=== PATIENT | female | born 1960 | race Caucasian/White ===

== ENCOUNTER → 2019-08-18 14:08 | Outpatient (CLI) | payer OTHER, SELFPAY ==
--- NOTE | ~2019-08-18 | MMUS_ITS ---
EXAMINATION: MM diagnostic pretty RT w rodrigo, US breast RT limited HISTORY: Right breast mass on screening mammogram TECHNIQUE: Additional 3-D tomosynthesis images of the right breast were performed and synthetic 2-D i mages were generated. CAD analysis was submitted and interpreted. High resolution limited right breas t ultrasound was performed. COMPARISON: 06/01/2019, 05/17/2018, 05/06/2017 BREAST PARENCHYMAL COMPOSITION: There are scattered areas of fibroglandular density. FINDINGS: MAMMOGRAPHIC FINDINGS: There is a 5 mm oval, low density, obscured mass in the middle third of the breast at the 9:00 locati on 7 cm from the nipple. No suspicious calcification or architectural distortion are identified. ULTRASOUND: There is a 4 mm cyst at the 9:00 location 8 cm from the nipple corresponding to mammographic finding in question. IMPRESSION: 1. No mammographic or sonographic evidence of malignancy. 2. Recommend routine screening mammography in one year. BI-RADS Category 2: Benign finding(s). Reviewed, dictated and finalized at location A. STMENT OFFICER IMPRESSION: 1. No mammographic or sonographic evidence of malignancy. 2. Recommend routine screening mammography in one year. BI-RADS Category 2: Benign finding(s).
== END ==
PROVIDERS: PCP Internal Medicine; Visit Provider Internal Medicine
DX: N63.10 Unspecified lump in the right breast, unspecified quadrant (principal)
CPT/HCPCS: 76642; 77061; 77065; G0279

== ENCOUNTER 2020-07-19 13:44 | Outpatient (CLI) | payer OTHER, SELFPAY ==
--- NOTE | ~2020-07-19 | MM_ITS ---
EXAMINATION: MM screening pretty BI w rodrigo HISTORY: Screening mammogram TECHNIQUE: Craniocaudal and mediolateral oblique 3-D tomosynthesis images were obtained and synthetic 2-D images were generated. CAD analysis was submitted and interpreted. COMPARISON: diagnostic right digital mammogram and limited right breast ultrasound 06/01/2019, 05/25/2018, 05/06/2017 bilateral digital screening mammogram examinations BREAST PARENCHYMAL COMPOSITION: There are scattered areas of fibroglandular density. FINDINGS: Stable low-density circumscribed 5 mm opacity in the posterior outer mid right breast corre sponding to a 5 mm mammographic opacity documented to be a cyst at 9:00 8 cm from the nipple on 2019 limited right breast ultrasound examination. There is no evidence of suspicious mass, calcification, or architectural distortion to suggest malign sammi in either breast. There has been no suspicious interval change. IMPRESSION: 1. No mammographic evidence of malignancy. 2. Recommend routine screening mammography in one year. BI-RADS Category 2: Benign finding(s). Reviewed, dictated and finalized at location A. UCT COORDINATOR
== END 2020-07-19 13:45 | disposition home or self-care (01) ==
PROVIDERS: PCP Internal Medicine; Visit Provider Internal Medicine
DX: Z12.31 Encounter for screening mammogram for malignant neoplasm of breast (principal)
CPT/HCPCS: 77063; 77067

== ENCOUNTER 2021-07-21 15:30 | Outpatient (CLI) | payer BC, SELFPAY ==
--- NOTE | ~2021-07-21 | MM_ITS ---
EXAMINATION: MM screening [facility] BI w rodrigo HISTORY: Screening mammogram TECHNIQUE: Craniocaudal and mediolateral oblique 3-D tomosynthesis images were obtained and synthetic 2-D images were generated. CAD analysis was submitted and interpreted. COMPARISON: 07/19/2020, 08/18/2019, 06/01/2019 BREAST PARENCHYMAL COMPOSITION: There are scattered areas of fibroglandular density. FINDINGS: There is no evidence of suspicious mass, calcification, or architectural distortion to sugg est malignancy in either breast. There has been no suspicious interval change. IMPRESSION: 1. No mammographic evidence of malignancy. 2. Recommend routine screening mammography in one year. BI-RADS Category 1: Negative Reviewed, dictated and finalized at location A. VIDEOTAPE EDITOR
== END 2021-07-21 15:31 | disposition home or self-care (01) ==
LOC: ANHIMG 15:32
PROVIDERS: PCP Internal Medicine; Visit Provider Internal Medicine
DX: Z12.31 Encounter for screening mammogram for malignant neoplasm of breast (principal)
CPT/HCPCS: 77063; 77067

== ENCOUNTER 2022-03-15 19:00 | Emergency (ER) | payer OTHER, BC, SELFPAY ==
[2022-03-15 19:02] VITALS: BP 117/75; PULSE 81; RESP 16; TEMP 36.9; O2SAT 99
--- NOTE | 2022-03-15 19:32 | ED_ITS ---
HPI - Back Pain/Injury General Chief Complaint: Back Pain/Injury Stated Complaint: back pain, left leg pain Time Seen by Provider: 03/15/22 19:19 History of Present Illness HPI Narrative: My days off 61-year-old female presents to the emergency room sudden onset of low back pain. 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 Patient states that she bent over to waste picker a bag of trash when she felt a pulling sensation in her left lower back. Patient denies saddle anesthesia, lower extremity paresthesias, loss of bowel or bladder habits. Patient's pain is worse when she attempts to bend over or sit down or lay down. Related Data Allergies Allergy/AdvReac Type Severity Reaction Status Date / Time Penicillins Allergy Unknown UNKNOWN Verified 03/15/22 19:05 REACTION CHILD Review of Systems Review of Systems: CONSTITUTIONAL: Denies fever, chills, or sweats. EYES: Denies visual changes, redness, or discharge. ENT: Denies rhinorrhea, congestion, sore throat, or otalgia. CARDIOVASCULAR: Denies chest pain, palpitations, or edema. RESPIRATORY: Denies cough or dyspnea. GASTROINTESTINAL: Denies abdominal pain, nausea, vomiting, or diarrhea. GENITOURINARY: Denies dysuria or hematuria. SKIN: Denies rash or itching. MUSCULOSKELETAL: Reports left lower back pain NEUROLOGIC: Denies headache, numbness, dizziness, or weakness. PSYCHIATRIC: Denies anxiety or depression. Exam Narrative: GENERAL: Well-appearing, well-nourished, no physical limitations, and in no acute distress. HEAD: Normocephalic, atraumatic. EYES: Conjunctivae normal, PERRLA and EOMI. CHEST: Clear to auscultation. No respiratory distress. No wheezes rales or rhonchi. No tenderness. HEART: Regular rate and rhythm. No murmur heard. Normal peripheral pulses. BACK: No midline cervical/thoracic/lumbar tenderness, step-offs, bony abnormality. Tenderness over the left thoracolumbar fascia. Range of motion limited with rotation and lateral bend.+SLE LLE EXTREMITIES: Normal range of motion. No edema. No clubbing or cyanosis SKIN: Warm, dry, no rash. No noted wounds NEURO: No focal deficits. Alert and oriented x3. MAEW. CN's II-XI intact bilaterally, normal gait. +patellar reflex PSYCH: Cooperative. Normal mood and affect. Course Vital Signs Vital signs: Vital Signs Temperature 36.9 C 03/15/22 19:02 Pulse Rate 81 03/15/22 19:02 Respiratory Rate 16 03/15/22 19:02 Blood Pressure 117/75 03/15/22 19:02 Pulse Oximetry 99 03/15/22 19:02 Temperature 36.9 C 03/15/22 19:02 Pulse Rate 81 03/15/22 19:02 Respiratory Rate 16 03/15/22 19:02 Blood Pressure 117/75 03/15/22 19:02 Pulse Oximetry 99 03/15/22 19:02 Discharge Plan Discharge Clinical Impression: Strain of lumbar region Patient Disposition: Home, Self-Care Condition: Stable Instructions: Antibiotic Form, Acute Low Back Pain (ED) Prescriptions: New methocarbamol 500 mg tablet 500 mg PO TID 5 Days Qty: 15 0RF naproxen 500 mg tablet 500 mg PO BID Qty: 14 0RF Follow-up/Referrals: Moisés,Renata Scott MD [Primary Care Provider] - Stand Alone Forms: Work/School Release IP Time of Disposition: 19:36
== END 2022-03-15 19:54 | disposition home or self-care (01) ==
PROVIDERS: Emergency Provider Nurse Practitioner Family; PCP Internal Medicine
DX: S39.012A Strain of muscle, fascia and tendon of lower back, initial encounter (principal); X50.0XXA Overexertion from strenuous movement or load, initial encounter
CPT/HCPCS: 99283

== ENCOUNTER 2022-09-11 09:54 | Outpatient (CLI) | payer BC, SELFPAY ==
--- NOTE | ~2022-09-11 | MM_ITS ---
EXAMINATION: MM screening pretty BI w rodrigo HISTORY: Screening mammogram TECHNIQUE: Craniocaudal and mediolateral oblique 3-D tomosynthesis images were obtained and synthetic 2-D images were generated. CAD analysis was submitted and interpreted. COMPARISON: 07/17/2021, 07/19/2020 bilateral screening mammogram examinations BREAST PARENCHYMAL COMPOSITION: There are scattered areas of fibroglandular density. FINDINGS: There is no evidence of suspicious mass, calcification, or architectural distortion to sugg est malignancy in either breast. There has been no suspicious interval change. IMPRESSION: 1. No mammographic evidence of malignancy. 2. Recommend routine screening mammography in one year. BI-RADS Category 1: Negative Reviewed, dictated and finalized at location A.
== END 2022-09-11 09:55 | disposition home or self-care (01) ==
LOC: ANHIMG 09:57
PROVIDERS: PCP Internal Medicine; Visit Provider Internal Medicine
DX: Z12.31 Encounter for screening mammogram for malignant neoplasm of breast (principal)
CPT/HCPCS: 77063; 77067

== ENCOUNTER 2023-09-24 09:26 | Outpatient (CLI) | payer BC, SELFPAY ==
--- NOTE | ~2023-09-24 | MM_ITS ---
EXAMINATION: MM screening pretty BI w rodrigo HISTORY: Screening mammogram TECHNIQUE: Craniocaudal and mediolateral oblique 3-D tomosynthesis images were obtained and synthetic 2-D images were generated. CAD analysis was submitted and interpreted. COMPARISON: 09/11/2022, 07/21/2021 bilateral screening mammogram examinations BREAST PARENCHYMAL COMPOSITION: There are scattered areas of fibroglandular density. FINDINGS: There is no evidence of suspicious mass, calcification, or architectural distortion to sugg est malignancy in either breast. There has been no suspicious interval change. IMPRESSION: 1. No mammographic evidence of malignancy. 2. Recommend routine screening mammography in one year. BI-RADS Category 1: Negative Reviewed, dictated and finalized at location A.
== END 2023-09-24 09:27 | disposition home or self-care (01) ==
LOC: ANHIMG 09:30
PROVIDERS: PCP Internal Medicine; Visit Provider Internal Medicine
DX: Z12.31 Encounter for screening mammogram for malignant neoplasm of breast (principal)
CPT/HCPCS: 77063; 77067

== ENCOUNTER 2023-10-10 15:15 | Emergency (ER) | payer OTHER, BC, SELFPAY ==
--- NOTE | ~2023-10-10 | XR_ITS ---
EXAMINATION: XR femur RT min 2V DATE: 10/10/2023 15:49 INDICATION: Right thigh pain. TECHNIQUE: 2 views of right femur on 4 radiographs were obtained. COMPARISON: None. FINDINGS: There is normal. No fracture. There is mild right knee osteoarthritis. No knee joint effusi on. IMPRESSION: 1. Mild right knee osteoarthritis. Reviewed, dictated and finalized at location E.
[2023-10-10 15:28] VITALS: BP 114/63; PULSE 82; RESP 16; TEMP 37.1; O2SAT 99
--- NOTE | 2023-10-10 16:11 | ED.GENADULT ---
HPI - General Adult General Chief complaint: Extremity Injury, Lower Stated complaint: FALL Source: patient Mode of arrival: ambulatory Limitations: no limitations History of Present Illness HPI narrative: Patient presents for evaluation of right leg pain. 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 She did not hit her head. No LOC. She states she has some bruising in the right hip and also strained the muscle in the back of her right thigh. No loss of ROM however movement and palpation of the affected areas make her pain worse. She does not provide me with a numerical rating to the pain. No paresthesias. The sleeve of her shirt pulled on her left arm Related Data Home Medications Medication Instructions Recorded Confirmed atorvastatin 80 mg tablet 80 mg PO DAILY 10/10/23 10/10/23 hydrochlorothiazide 25 mg tablet 25 mg PO DAILY 10/10/23 10/10/23 lisinopril 20 mg tablet 20 mg PO DAILY 10/10/23 10/10/23 Allergies Allergy/AdvReac Type Severity Reaction Status Date / Time Penicillins Allergy Unknown UNKNOWN Verified 10/10/23 15:20 REACTION CHILD Course Course Emergency Course: This is a 63 yr old female who is here for evaluation of right leg pain following a fall. X ray negative for fracture. exam is consistent with contusion a muscle strain. Recommend ibuprofen for pain. She requested a muscle relaxer so will be discharged with flexeril. Application of ice and rest recommended. Follow up with primary provider. Go to the ER for worsening symptoms. Pt in agreement with plan of care. Level of Care: Express Care Visit Vital Signs Vital signs: Vital Signs Temperature 37.1 C 10/10/23 15:28 Pulse Rate 82 10/10/23 15:28 Respiratory Rate 16 10/10/23 15:28 Blood Pressure 114/63 10/10/23 15:28 Pulse Oximetry 99 10/10/23 15:28 Oxygen Delivery Room Air 10/10/23 15:28 Temperature 37.1 C 10/10/23 15:28 Pulse Rate 82 10/10/23 15:28 Respiratory Rate 16 10/10/23 15:28 Blood Pressure 114/63 10/10/23 15:28 Pulse Oximetry 99 10/10/23 15:28 Oxygen Delivery Room Air 10/10/23 15:28 Medical Decision Making Vital Signs Vital Signs: Vital Signs Temperature 37.1 C 10/10/23 15:28 Pulse Rate 82 10/10/23 15:28 Respiratory Rate 16 10/10/23 15:28 Blood Pressure 114/63 10/10/23 15:28 Pulse Oximetry 99 10/10/23 15:28 Oxygen Delivery Room Air 10/10/23 15:28 Temperature 37.1 C 10/10/23 15:28 Pulse Rate 82 10/10/23 15:28 Respiratory Rate 16 10/10/23 15:28 Blood Pressure 114/63 10/10/23 15:28 Pulse Oximetry 99 10/10/23 15:28 Oxygen Delivery Room Air 10/10/23 15:28 Imaging Data Radiologist's impression: EXAMINATION: XR femur RT min 2V DATE: 10/10/2023 15:49 INDICATION: Right thigh pain. TECHNIQUE: 2 views of right femur on 4 radiographs were obtained. COMPARISON: None. FINDINGS: There is normal. No fracture. There is mild right knee osteoarthritis. No knee joint effusion. IMPRESSION: 1. Mild right knee osteoarthritis. Discharge Plan Discharge Clinical Impression: Contusion of right thigh Qualifiers: Encounter type: initial encounter Qualified Code(s): S70.11XA - Contusion of right thigh, initial encounter Patient Disposition: Home, Self-Care Condition: Stable Instructions: Antibiotic Form, Contusion in Adults (ED) Patient Language: Azerbaijani Prescriptions: New cyclobenzaprine 10 mg tablet 10 mg PO TID PRN (Reason: muscle spasm) Qty: 15 0RF No Action atorvastatin 80 mg tablet 80 mg PO DAILY lisinopril 20 mg tablet 20 mg PO DAILY hydrochlorothiazide 25 mg tablet 25 mg PO DAILY naproxen 500 mg tablet 500 mg PO BID Qty: 14 0RF Follow-up/Referrals: Kevin Rice MD [Physician] - Time of Disposition: 16:07
== END 2023-10-10 16:15 | disposition home or self-care (01) ==
PROVIDERS: Emergency Provider Nurse Practitioner
DX: S70.11XA Contusion of right thigh, initial encounter (principal); W01.0XXA Fall on same level from slipping, tripping and stumbling without subsequent striking against object, initial encounter; Y99.0 Civilian activity done for income or pay
CPT/HCPCS: 73552; 99213; G0463

== ENCOUNTER 2024-09-25 09:30 | Outpatient (CLI) | payer MEDICARE, SELFPAY ==
--- NOTE | ~2024-09-25 | MM_ITS ---
EXAMINATION: MM screening pretty BI w rodrigo HISTORY: Screening TECHNIQUE: Craniocaudal and mediolateral oblique 3-D tomosynthesis images were obtained and synthetic 2-D images were generated. CAD analysis was submitted and interpreted. COMPARISON: Comparison to multiple prior studies sequentially, with oldest reviewed study dated 10/2018. BREAST PARENCHYMAL COMPOSITION: Not dense: There are scattered areas of fibroglandular density. FINDINGS: There is no evidence of suspicious mass, calcification, or architectural distortion to sugg est malignancy in either breast. There has been no suspicious interval change. IMPRESSION: 1. No mammographic evidence of malignancy. 2. Recommend routine screening mammography in one year. BI-RADS Category 1: Negative Reviewed, dictated and finalized at location A.
--- OUTSIDE RECORDS SUMMARY | 2024-09-25 10:23 | XMS_ITS | Continuity of Care Document ---
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 Role Phone Renata Curiel MD Unavailable Unavailable Allergies, Adverse Reactions, Alerts Substance Reaction Status Criticality penicillin G Other Active No Information Medications Medication Instructions Dosage Effective Dates (start - stop) Status Comments LISINOPRIL 20MG TABLETS TAKE 1 TABLET BY MOUTH EVERY DAY - Active HYDROCHLOROTHIAZIDE 25MGTABLETS TAKE 1/2 TABLET BY MOUTH EVERY DAY - Active ATORVASTATIN 80MG TABLETS TAKE 1 TABLET BY MOUTH EVERY DAY - Active NAPROXEN 500MG TABLETS TAKE 1 TABLET BY MOUTH TWICE DAILY WITH FOOD - Active lidocaine 5 % topical patch apply 1 patch by transdermal route every day (May wear up to 12hours.) 1.00 patch - Active omega 4-nyt-bfn-fish oil 1,000 mg (120 mg-180 mg) capsule Patient takes fish oil 1200mg/Omega3 720mg one daily - Active ADULT LOW STR ASPIRIN 81 MG TB 1 QD-daily - Active CALCIUM CARBONATE W/VITAMIN D 1 BID - Active MULTIVITAMIN TABS 1 QD - Active LISINOPRIL 20MG TABLETS TAKE 1 TABLET BY MOUTH EVERY DAY - No Longer Active Procedures Procedure Date CBC, INC PLATELETS AND DIFFERENTIAL COMPREHEN METABOLIC PANEL CMP HEMOGLOBIN A1C HGA1C, GLYCO LIPID PANEL OFFICE [id number] SYST BP LT 130 MM HG DIAST BP < 80 MM HG IMMUN ADMIN (INC PERCUTANEOUS) SINGLE, F IRST INJ INFLUENZA VIRUS VACCINE 0.5mL DOSAGE; IN ESERVATIVE FREE, IM USE ROUTINE VENIPUNCTURE IL BASIC METABOLIC PANEL(BMP) HEMOGLOBIN A1C HGA1C, GLYCO MICROALBUMIN, QN (URINE) CREATININE, (U-R) Pt inelig neg scrn depres PREVENTATIVE-NEW: 40-64 BODY MASS INDEX DOCD SYST BP LT 130 MM HG DIAST BP < 80 MM HG ROUTINE VENIPUNCTURE IL CBC, INC PLATELETS AND DIFFERENTIAL COMPREHEN METABOLIC PANEL CMP HEMOGLOBIN A1C HGA1C, GLYCO LIPID PANEL MICROALBUMIN, QN (URINE) CREATININE, (U-R) Pt inelig neg scrn depres IMMUN ADMIN (INC PERCUTANEOUS) SINGLE, F IRST INJ FLU VAC NO PRSV 4 ANIRUDH, 0.5mL DOSAGE OFFICE [id number] BODY MASS INDEX DOCD SYST BP LT 130 MM HG DIAST BP < 80 MM HG ROUTINE VENIPUNCTURE IL BASIC METABOLIC PANEL(BMP) HEMOGLOBIN A1C HGA1C, GLYCO Pt inelig neg scrn depres OFFICE [id number] BODY MASS INDEX DOCD SYST BP LT 130 MM HG DIAST BP < 80 MM HG ROUTINE VENIPUNCTURE IL SCREENING FOR PAP (OBTAINING SPECIMEN) A Pt inelig neg scrn depres IMMUN ADMIN (INC PERCUTANEOUS) SINGLE, F IRST INJ Pneumococcal Conjugate Vaccine (PCV20) O CBC, INC PLATELETS AND DIFFERENTIAL COMPREHEN METABOLIC PANEL CMP HEMOGLOBIN A1C HGA1C, GLYCO LIPID PANEL MICROALBUMIN, QN (URINE) CREATININE, (U-R) ROUTINE VENIPUNCTURE PREVENTATIVE-EST: 40-64 BODY MASS INDEX DOCD SYST BP GE 130 - 139MM HG DIAST BP < 80 MM HG IMMUN ADMIN (INC PERCUTANEOUS) SINGLE, F IRST INJ FLU VAC NO PRSV 4 ANIRUDH, 0.5mL DOSAGE OFFICE [id number] BODY MASS INDEX DOCD SYST BP LT 130 MM HG DIAST BP < 80 MM HG Pt inelig neg scrn depres OFFICE [id number] BODY MASS INDEX DOCD SYST BP >= 140 MM HG6 IT DIAST BP < 80 MM HG BASIC METABOLIC PANEL(BMP) HEMOGLOBIN A1C HGA1C, GLYCO ROUTINE VENIPUNCTURE THYROID STIMULATION HORMONE(TSH) 2021 Pt inelig neg scrn depres IMMUN ADMIN (INC PERCUTANEOUS) SINGLE, F IRST INJ FLU VAC NO PRSV 4 ANIRUDH, 0.5mL DOSAGE PREVENTATIVE-EST: 40-64 BODY MASS INDEX DOCD SYST BP LT 130 MM HG DIAST BP < 80 MM HG ROUTINE VENIPUNCTURE Pt inelig neg scrn depres OFFICE [id number] BODY MASS INDEX DOCD SYST BP LT 130 MM HG DIAST BP < 80 MM HG BASIC METABOLIC PANEL(BMP) HEMOGLOBIN A1C HGA1C, GLYCO MICROALBUMIN, QN (URINE) CREATININE, (U-R) ROUTINE VENIPUNCTURE Pt inelig neg scrn depres PREVENTATIVE-EST: 40-64 BODY MASS INDEX DOCD SYST BP GE 130 - 139MM HG DIAST BP < 80 MM HG CBC, INC PLATELETS AND DIFFERENTIAL COMPREHEN METABOLIC PANEL CMP 0 HEMOGLOBIN A1C HGA1C, GLYCO LIPID PANEL ROUTINE VENIPUNCTURE Advance Directives Directive Yes / No Effective Date File Name No Information Encounters Encounter Description Practice Location Reason(s) For Visit Diagnoses Date Provider Providers Copied on Encounter [email or web address] [place], [address], [place], [place], [address] , tel:[phone] [email or web address] [facility] No Information 5 Moisés Yanez. [address] [place], [address], [place]. tel:[phone] [email or web address], [address], [place], [place], [address] , [place] tel:[phone] [email or web address] No Information 4 Faheem Bush. [address], [address], [place]. tel:[phone] Referring Provider: Renata Sue, [address] [place], [address] . tel:[phone] OFFICE PFUIA-FMO-KR TAILED [email or web address] [place], [address], [place], [place], [address] , [phone] [email or web address] Chronic Conditions (chief complaint) Body mass index [BMI] 29.0-29.9, adultHypertension , unspecified typeType 2 diabetes mellitus without complication, without long-term current use of insulinOther and unspecified hyperlipidemiaRou nikia medical examScreening for colorectal cancerEncounter for screening for malignant neoplasm of rectum 4 Moisés Yanez. [address] [place], [place], [address], [place]. tel:[phone] Referring Provider: Renata Sue, [address] [place], [address] . tel:[phone] [email or web address] [place], [address], [place], [place], [address] , [place] tel: [phone] [email or web address] [facility] No Information 4 Moisés Yanez. [address] [place], [address], [place]. tel:[phone] [email or web address] [place], [address], [place], [place], [address] , [place] tel: [phone] [email or web address] [facility] No Information 4 Moisés Yanez. [address] [place], [address], [place]. tel:[phone] [email or web address], [address], [place], [place], [address] , [place] tel: [phone] [email or web address] No Information 4 Faheem Bush. [address], [address], [place]. tel:[phone] Referring Provider: Roula Parish, [address] [place], [address] . tel:[phone] PREVENTATIVE -NEW: 40-64 [email or web address] [place], [address], [place], [place], [address] , [place] tel: [phone] [email or web address] [facility] preventive exam (chief complaint)C hronic Conditions (chief complaint) Type 2 diabetes mellitus without complication, without long-term current use of insulinHypertensi on, unspecified typeRoutine medical examOther and unspecified hyperlipidemiaBod y mass index [BMI] 28.0-28.9, adult Apr-0 4 Jem Celeste. [address] [place], [place], [address], [place]. tel:[phone] Referring Provider: Renata Sue, [address] [place], [address] . tel:[phone] [facility], [address], [place], [place], [address] , tel: [phone] [facility] No Information Aug-2 4 Moisés Yanez. [address] [place], [place], [address], [place]. tel:[phone] [facility], [address], [place], [place], [address] , [place] tel: [phone] [facility] No Information 3 Fa[address]. [address] [place] [address], [id number], [place]. tel:[phone] Referring Provider: Renata Sue, [address] [place], [address] . tel:[phone] OFFICE DNRPI-IYD-XX [facility], [address], [place], [place], [address] , tel: [phone] [facility] Chronic Conditions (chief complaint) Body mass index [BMI] 29.0-29.9, adultType 2 diabetes mellitus without complication, without long-term current use of insulinHypertensi on, unspecified typeOther and unspecified hyperlipidemiaRou nikia medical exam 3 Moisés Yanez. [address] [place], [place], [address], [place]. tel:[phone] Referring Provider: Renata Sue, [address] [place], [address] . tel:[phone] [facility], [address], [place], [place], [address] , tel: [phone] [facility] No Information 0 3- 3 Faheem Eleazar. [address] [facility], [address], [address], . tel:[phone] Referring Provider: Renata Sue, [address] [place], [address] . tel:[phone] [facility], [address], [place], [place], [address] , [place] tel: [phone] [facility] Chronic conditions (chief complaint)C hronic Conditions (chief complaint) Encounter for gynecological examination without abnormal findingCervical cancer screeningType 2 diabetes mellitus without complication, without long-term current use of insulinHypertensi on, unspecified typeOther and unspecified hyperlipidemia Sep-0 3 Moisés Yanez. [address] [place], [place], [address], [place]. tel:[phone] Referring Provider: Renata Sue, [address] [place], [address] . tel:[phone] PREVENTATIVE -EST: 40-64 [facility], [address], [place], [place], [address] , [place] tel: [phone] [facility] preventive exam (chief complaint)C hronic Conditions (chief complaint) Body mass index [BMI] 29.0-29.9, adultType 2 diabetes mellitus without complication, without long-term current use of insulinHypertensi on, unspecified typeOther and unspecified hyperlipidemiaRou nikia medical exam Mar- 2 Moisés Yanez. [address] [place], [place], [address], [place]. tel:[phone] Referring Provider: Renata Sue, [address] [place], [address] . tel:[phone] [facility]ICE [facility], [address], [place], [place], [address] , [place] tel: [phone] [facility] evaluate low back pain (chief complaint)C hronic Conditions (chief complaint) Body mass index [BMI] 28.0-28.9, adultAcute left-sided low back pain without sciaticaType 2 diabetes mellitus without complication, without long-term current use of insulinHypertensi on, unspecified type Sep-2 2 Moisés Yanez. [address] [place], [place], [address], . tel:[phone] Referring Provider: Renata Sue, [address] [place], [address] . tel:[phone] [facility]ICE [facility], [address], [place], [place], [address] , tel: [phone] [facility] Chronic conditions (chief complaint)C hronic Conditions (chief complaint) Body mass index [BMI] 28.0-28.9, adultType 2 diabetes mellitus without complication, without long-term current use of insulinHypertensi on, unspecified typeCold intoleranceOther and unspecified hyperlipidemia Apr- 2 Moisés Yanez. [address] [place], [place], [address], . tel:[phone] Referring Provider: Renata Sue, [address] [place], [address] . tel:[phone] PREVENTATIVE -EST: 40-64 [facility], [address], [place], [place], [address] , tel:[phone] [facility] preventive exam (chief complaint) Body mass index [BMI] 30.0-30.9, adultRoutine medical examType 2 diabetes mellitus without complication, without long-term current use of insulinHypertensi on, unspecified typeOther and unspecified hyperlipidemiaScr eening for malignant neoplasm of colon Mar- 1 Moisés Yanez. [address] [place], [place], [address], [place]. tel:[phone] Referring Provider: Renata Sue, [address] [place], [address] . tel:[phone] OFFICE [facility], [address], [place], [place], [address] , tel: [phone] [facility] chronic conditions (chief complaint)C hronic Conditions (chief complaint) Body mass index (BMI) 31.0-31.9, adultOther and unspecified hyperlipidemiaUns pecified essential hypertensionType 2 diabetes mellitus without complication, without long-term current use of insulin Sep-2 0 Moisés Yanez. [address] [place], [place], [address], . tel:[phone] Referring Provider: Renata Sue, [address] [place], [address] . tel:[phone] PREVENTATIVE -EST: 40-64 [facility], [address], [place], [place], [address] , tel: [phone] [facility] PX (chief complaint)p reventive exam (chief complaint) Routine medical examUnspecified essential hypertensionSeizu re disorderOther and unspecified hyperlipidemiaBod y mass index (BMI) 31.0-31.9, adultAcute right-sided low back pain with right-sided sciaticaHyperglyc emia Mar-0 - 0 Parish Roula. [address] [place], [address], [place]. tel:[phone] Referring Provider: Renata Sue, [address] [place], [address] . tel:[phone] [facility], [address], [place], [place], [address] , tel: [phone] [facility] Breast mass, right Dec-0 9 Moisés Yanez. [address] [place], [place], [address], [place]. tel:[phone] Referring Provider: Renata Sue, [address] [place], [address] . tel:[phone] [employer] [facility], [address], [place], [place], [address] , tel: [phone] [facility] PX (chief complaint)p reventive exam (chief complaint) Body mass index (BMI) 30.0-30.9, adultRoutine medical examOther and unspecified hyperlipidemiaUns pecified essential hypertensionSeizu re disorderElevated glucosePre-operat ragini exam October-0 9 Moisés Yanez. [address] [place], [place], [address], [place]. tel:[phone] Referring Provider: Renata Sue, [address] [place], [address] . tel:[phone] [facility], [address], [place], [place], [address] , tel: [phone] [facility] Body mass index (BMI) 29.0-29.9, adultEssential (primary) hypertensionImpai red fasting glucoseHyperlipid emia, unspecifiedLong term use of drug 8 Moisés Yanez. [address] [place], [place], [address], [place]. tel:[phone] Referring Provider: Renata Sue, [address] [place], [address] . tel:[phone] [email or web address], [address], [place], [place], [address] , tel: [phone] [facility] Encounter for preventive health examinationEssent ial (primary) hypertensionHyper lipidemia, unspecifiedEpilep sy, unsp, not intractable, without status epilepticusImpair ed fasting glucosePolyosteoa rthritis, unspecifiedScreen ing for malignant neoplasm of colon 8 Minoo Rausch. [address] [place], [place], [address]. tel:[phone] Referring Provider: Miracle Hennessy, [address] [place], [address] . tel:[phone] [email or web address], [address], [place], [place], [address] , [place] tel: [phone] [facility] Essential (primary) hypertensionHyper lipidemia, unspecifiedImpair ed fasting glucoseEpilepsy, unsp, not intractable, without status epilepticus 7 Minoo Rausch. [address] [place], [place], [address]. tel:[phone] Referring Provider: Miracle Hennessy, [address] [place], [address] . tel:[phone] [facility], [address], [place], [place], [address] , tel: [phone] [facility] Essential (primary) hypertensionHyper lipidemia, unspecifiedEpilep sy, unsp, not intractable, without status epilepticusImpair ed fasting glucose 7 Hennessy Miracle. [address] [place], [place], [address]. tel:[phone] Referring Provider: Miracle Hennessy, [address] [place], [address] . tel:[phone] [facility], [address], [place], [place], [address] , tel: [phone] [facility] Encounter for preventive health examinationEssent ial (primary) hypertensionHyper lipidemia, unspecifiedEpilep sy, unsp, not intractable, without status epilepticusPolyos teoarthritis, unspecifiedImpair ed fasting glucoseSpecial screening for malignant neoplasm of colon 7 Minoo Rausch. [address] [place], [place], [address]. tel:[phone] Referring Provider: Miracle Hennessy, [place], [address] . tel:[phone] [facility], [address], [place], [place], [address] , tel: [phone] [facility] Essential (primary) hypertensionHyper lipidemia, unspecifiedEpilep sy, unsp, not intractable, without status epilepticusPolyos teoarthritis, unspecified 6 Hennessy Miracle. [address] [place], [place], [address]. tel:[phone] Referring Provider: Miracle Hennessy, [address] [place], [address] . tel:[phone] [facility], [address], [place], [place], [address] , tel: [phone] [facility] Essential (primary) hypertensionHyper lipidemia, unspecifiedEpilep sy, unsp, not intractable, without status epilepticusOther fdc (current) drug therapy Nov- 6 Minoo Tiradoh. [address] [place], [place], [address]. tel:[phone] Referring Provider: Miracle Hennessy, [place], [address] . tel:[phone] [facility], [address], [place], [place], [address] , tel: [phone] [facility] Tear of left rotator cuff, unspecified tear extentEssential (primary) hypertensionEpile psy, unsp, not intractable, without status epilepticus 6 Hennessy Miracle. [address] [place], [place], [address]. tel:[phone] Referring Provider: Miracle Hennessy, [place], [address] . tel:[phone] [facility], [address], [place], [place], [address] , tel: [phone] [facility] Essential (primary) hypertensionHyper lipidemia, unspecifiedImpair ed fasting glucoseEpilepsy, unsp, not intractable, without status epilepticusTear of left rotator cuff, unspecified tear extent 6 Hennessy Miracle. [address] [place], [place], [address]. tel:[phone] Referring Provider: Miracle Hennessy, [place], [address] . tel:[phone] [facility], [address], [place], [place], [address] , tel: [phone] [facility] Encounter for preventive health examinationEssent ial (primary) hypertensionHyper lipidemia, unspecifiedImpair ed fasting glucoseSeizure disorderPolyosteo arthritis, unspecifiedForeig n body of ear, right, initial encounterSpecial screening for malignant neoplasm of colonTherapeutic drug monitoring 6 Minoo Tiradoh. [address] [place], [place], [address]. tel:[phone] Referring Provider: Miracle Hennessy, [place], [address] . tel:[phone] [facility], [address], [place], [place], [address] , tel: [phone] [facility] Essential (primary) hypertensionHyper lipidemia, unspecifiedImpair ed fasting glucoseSeizure disorderEncounter for immunization 5 Hennessy Miracle. [address] [place], [place], [address]. tel:[phone] Referring Provider: Miracle Hennessy, [place], [address] . tel:[phone] [facility], [address], [place], [place], [address] , tel: [phone] [facility] Unspecified essential hypertensionOther and unspecified hyperlipidemiaEle vated glucoseEpilepsy, unspecified, without mention of intractable epilepsy 5 Hennessy Miracle. [address] [place], [place], [address]. tel:[phone] Referring Provider: [place], [address] . tel:[phone] [facility], [address], [place], [place], [address] , tel: [phone] [facility] Routine Medical ExamUnspecified essential hypertensionOther and unspecified hyperlipidemiaEpi lepsy, unspecified, without mention of intractable epilepsyOsteoarth rosis, generalized, involving unspecified siteElevated glucose 5 Hennessy Miracle. [address] [place], [place], [address]. tel:[phone] Referring Provider: [place], [address] . tel:[phone] [facility], [address], [place], [place], [address] , tel: [phone] [facility] Other and unspecified hyperlipidemiaEpi lepsy, unspecified, without mention of intractable epilepsyUnspecifi ed essential hypertensionOsteo arthrosis, generalized, involving unspecified site 4 Hennessy Miracle. [address] [place], [place], [address]. tel:[phone] Referring Provider: Miracle Hennessy, [address] [place], [address] . tel:[phone] [email or web address], [address], [place], [place], [address] , [place] tel: [phone] [place] Epilepsy, unspecified, without mention of intractable epilepsyOther and unspecified hyperlipidemiaOst eoarthrosis, generalized, involving unspecified siteHTNTherapeuti c Drug Monitoring 4 Minoo Tiradoh. [address] [place], [place], [address]. tel:[phone] Referring Provider: Miracle Hennessy, [address] [place], [address] . tel:[phone] [email or web address], [address], [place], [address] , [place] tel: [phone] [facility] Routine Medical ExamHTNOTHER ABNORMAL GLUCOSEOsteoarthr osis, generalized, involving unspecified siteEpilepsy, unspecified, without mention of intractable epilepsyRoutine Medical ExamInfluenza VaccineGynecologi steffen ExaminationScreen ing for malignant neoplasms of the cervix 3 Minoo Rausch. [address] [place], [place], [address]. tel:[phone] Referring Provider: Miracle Hennessy, [address] [place], [address] . tel:[phone] [email or web address], [address], [place], [place], [address] , [place] tel: [phone] [facility] No Information Feb- 3 Minoo Tiradoh. [address] [place], [place], [address]. tel:[phone] [email or web address], [address], [place], [place], [address] , tel:[phone] [facility] HYPERTENSION NOSHYPERLIPIDEMIA NEC/NOSElevated glucoseSeizure disorderURI (upper respiratory infection) 3 Minoo Rausch. [address] [place], [place], [address]. tel:[phone] Referring Provider: Miracle Hennessy, [address] [place], [address] . tel:[phone] [facility], [address], [place], [place], [address] , tel: [phone] [facility] HYPERTENSION NOSHYPERLIPIDEMIA NEC/NOSGENERAL OSTEOARTHROSISEle vated glucoseSeizure disorder 3 Minoo Rausch. [address] [place], [place], [address]. tel:[phone] Referring Provider: Miracle Hennessy, [place], [address] . [phone] [address], [place], [place], [address] , tel: [phone] [facility] Routine general medical examination at a health care facilityRoutine general medical examination at a health care facilitySpecial screening for malignant neoplasms, colonHYPERTENSION NOSHYPERLIPIDEMIA NEC/NOSGENERAL OSTEOARTHROSISCON VULSIONS NECElevated glucose 2 Minoo Rausch. [address] [place], [place], [address]. tel:[phone] Referring Provider: Miracle Hennessy, [address] [place], [address] . tel:[phone] [facility], [address], [place], [place], [address] , tel: [phone] [place] Osteoarthrosis, generalized, involving unspecified siteOsteoarthrosi s, generalized, involving unspecified siteRoutine general medical examination at a health care facility 1 Minoo Rausch. [address] [place], [place], [address]. tel:[phone] Referring Provider: Miracle Hennessy, [address] [place], [address] . tel:[phone] [facility], [address], [place], [place], [address] , tel: [phone] [facility] No Information 0 1 Hennessy Miracle. [address] [place], [place], [address]. tel:[phone] [facility], [address], [place], [place], [address] , tel: [phone] [facility] ROUTINE MEDICAL EXAMGENERAL OSTEOARTHROSISHYP ERTENSION NOSCONVULSIONS NECHYPERLIPIDEMIA NEC/NOS 1 Minoo Tiradoh. [address] [place], [place], [address]. tel:[phone] [facility], [address], [place], [place], [address] , tel: [phone] [facility] No Information Aug-0 6 [facility] Miracle. [address] [place], [place], [address]. tel:[phone] Family History Family Member Type Diagnosis Age At Onset No Information Immunizations Vaccine Date Status Comments Fluzone Trivalent, preservative free, split virus, 0.5mL dosage administered Source: New Immuniza tion Record Fluzone Quad, preservative free, split virus, 0.5mL dosage administered Source: New Immuniza tion Record Pneumococcal conjugate PCV20 administered Source: New Immunization Record Fluzone Quad, preservative free, split virus, 0.5mL dosage administered Source: New Immuniza tion Record SHINGRIX (Zoster vaccine recombinant, adjuvanted) administered Note: [facility] ; Source: Source Unspecified SHINGRIX (Zoster vaccine recombinant, adjuvanted) administered Note: [facility] ; Source: Source Unspecified Fluzone Quad, preservative free, split virus, 0.5mL dosage administered Source: New Immuniza tion Record Pfizer-BioNTech COVID19 Vaccine, 0.3mL per dose, 2 doses, administered 21 days apart administered [facility] ; Source: Public Agency Pfizer-BioNTech COVID19 Vaccine, 0.3mL per dose, 2 doses, administered 21 days apart administered [facility] ; Source: Public Agency Fluzone Quad, preservative free, split virus, 0.5mL dosage administered Note: done at pt's [facility] ; Source: Source Unspecified Fluzone Quad, preservative free, split virus, 0.5mL dosage administered Source: Source Unspe cified Fluzone Quad , preservative free, split virus, 0.5mL dosage administered Note: [facility] ; Source: Source Unspecified Influenza, injectable, quadrivalent, preservative free, 3 yrs or older administered Source: New Immuniz ation Record Influenza, injectable, quadrivalent, preservative free, 3 yrs or older administered Source: New Immuniz ation Record Tdap administered Source: New Imm unization Record Influenza, injectable, quadrivalent, preservative free, 3 yrs or older administered Source: New Immuniz ation Record FLU 3 yrs and older administered Note: [id number] ; Source: New Immunization Record 58071 - Influenza administered Source: [facility] Unspecified Payers Payer name Insurance type Covered constitution party ID Authoriza tion(s) [employer] [place] [id number] [place] [id number] [place] [id number] [place] [id number] [place] [id number] [place] [id number] [place] [id number] [place] [id number] Social History Type Description Quantity Date Captured Comments Sex Female Smoking Status No Information Chief Complaint And Reason For Visit No Information Reason For Referral Reason For Referral No Information Plan Of Treatment Date Type Action Status Goal Dietary manageme nt education, guidance, and counseling completed Goal Dietary manageme nt education, guidance, and counseling completed Goal Dietary manageme nt education, guidance, and counseling completed Goal Dietary manageme nt education, guidance, and counseling completed Goal Dietary manageme nt education, guidance, and counseling completed Goal Dietary manageme nt education, guidance, and counseling completed Goal Dietary manageme nt education, guidance, and counseling completed Goal Dietary manageme nt education, guidance, and counseling completed Goal Dietary manageme nt education, guidance, and counseling completed Goal Dietary manageme nt education, guidance, and counseling completed Referral Ordered: X-RAY LUMBAR SPINE, COMPLETE Bilateral spine, lumbar ordered Referral Ordered: DIAGNOSTIC MAMMOGRAM (CAD) ONE BREAST Right Appointment date/timeframe: 06/12/2019 ordered Referral Referred To: [address]
[facility] [address] [place], [address] [phone] Ordered: Chest Xray, 2 Views Appointment date/timeframe: 12/04/2018 ordered Appointment Chelsea Okeefe BOOKED Patient Education Learning About Dietary Guidelines completed Patient Education Eating Healthy Foods: C are Instructio~ completed Patient Education Low Back Pain: Exercise s completed Patient Education Sciatica: Exercises com pleted History Of Present Illness Encounter Date Complaint History Of Prese nt Illness Chronic Conditions *See Chronic Conditions HPI Chronic Conditions *See Chronic Conditions HPI preventive exam Currently pregna nt: no.Patient is not contemplating . The patient states using condoms, male for control. Negative for: breast discharge, breast lump(s) and breast pain. Positive for: breast self exam. Pertinent negatives include abnormal vaginal bleeding. Diet healthy. Patient reports getting calcium supplement daily. Patient reports taking a vitamin D supplement daily.The patient states Patient's exercise level is moderate and frequency is daily. The patient does not use tobacco. The patient does not drink alcohol. Additional information: Cologuard - UTD 2020 - DUE IN 03/2024Mammogram - UTD ap - UTD OVID - DUE FOR BOOSTERPneumonia - UTDShingrix - UTDTdap - UTD 2014. Chronic Conditions *See Chronic Conditions HPI Chronic conditions Chronic Conditions *See Chronic Conditions HPI preventive exam The patient stat es she uses condoms, male for control.Postmenopausal: Age: 50, Type: natural. Diet healthy.The patient states her exercise level is moderate and frequency is daily. The patient does not use tobacco. She does not drink alcohol. Additional information: Routine PE done today.Fasting labs done today.Stays active at work. . Chronic Conditions *See Chronic Conditions HPI Chronic Conditions *See Chronic Conditions HPI evaluate low back pain Pt. 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 Pt. went to ER at [facility] and had xrays doneStates pain is worse when she walks and when she lays down and has difficulty sleeping due to the pain which is worse when rolling over.Has been using heating pad without much improvement.Using a cane to walk. No radiation of pain down the leg and no paresthesias or weakness in the legs. Chronic conditions Chronic Conditions *See Chronic Conditions HPI preventive exam The patient stat es she uses condoms, male for control.Postmenopausal: Age: 50, Type: natural. Diet healthy.The patient states her exercise level is moderate and frequency is daily. The patient does not use tobacco. She does not drink alcohol. Additional information: Routine wellness visit done today.Stays active at work but not much outside exercise.Mamm up to date.Cologuard due last done 3 years ago.Has DM stable due for labs- fasting labs drawn today.Has HTN stable on medication without SE's.Has hyperlipidemia stable on medication without SE s due for labs. . chronic conditions Chronic Conditions *See Chronic Conditions HPI preventive exam The patient stat es she uses condoms, male for control.Postmenopausal: Age: 50, Type: natural. Diet healthy.The patient states her exercise level is moderate and frequency is daily. She does not drink alcohol. PX Patient presents for annual physicalAcuteShe complains of pain with numbness and tingling to right lateral leg. She has no back pain. She has no loss of bowel or bladder control or difficulty voiding. She is taking Gabapentin. Her pain started after having surgery on right ankle. ChronicHTNPatient takes HCTZ and lisinoprilHome BP readings: noneNo chest pain, SOB, headaches, visual changesHyperlipidemiaPatient takes Lipitor daily with no side effectsSeizure disorderPatient has been prescribed Dilantin in the past. She was told to start taking Dilantin October 2018. She has not been taking the Dilantin because she was started on Gabapentin that was prescribed by architecture consultant. She has not had any seizures in the past year. Her last seizure was can't remember the last time because its been so long ago . Right ankle painPatient has been taking gabapentin. She had a right ankle fracture one year ago. She had surgery for repair. She has continued to have pain to right ankle and foot pain. Mood - feels tired - she works 2 jobsDiet - tries to eat healthy - usually eats at work which she thinks is healthy. Exercise - walks a lot ImmunizationsInfluenza - ALD 2019Shingrix - d/w patientTdap - UTDScreeningsColon Ca screening - cologuard in 2017Mammogram - ALD 07/2019Pap - UTD - 2018 preventive exam The patient stat es she uses condoms, male for control.Postmenopausal: Age: 50, Type: natural. Pertinent negatives include anxiety and depression. Diet healthy.The patient states her exercise level is moderate and frequency is daily. The patient does not use tobacco. Tobacco cessation has been discussed. She does not drink alcohol. Additional information: Pt. due for mammogram in April.Has upcoming surgery for ankle injury that occurred earlier this year at work when she slipped at fell and needs CXR and labs done and medical clearance for Dr. Tena who is performing surgery.Has HTN with BP stable on medication without SE's.Has hyperlipidemia stable due for labs. No SE's on med.Has elevated fasting glucose trying to limit intake of sweets and foods high in sugar.Has seizure disorder but not taking dilantin for past few months as she falls asleep in evening before taking her med. No seizures noted.. PX Functional Status Date Functional Assessmen t No Information Instructions Date Instruction Additional Infor erlinda Cologuard testing or dered- please return this as soon as possible after you receive itFlu vaccine given todayYou can get the newest COVID vaccine at the pharmacyYou will be due for your mammogram in 10/20follow up in 6 months for a physical Related to Routine medical exam We will check labs t odaySchedule your diabetic eye exam soon [facility] [place].Let them know that you have diabetes Related to Type 2 diabetes mellitus without complication, without long-term current use of insulin check labs todaycont inue current medication Continue to work on low fat diet and increase regular exercise with goal of walking at least 30 minutes 3-5 times per week Related to Other and unspecified hyperlipidemia Continue current med icationCont. to work on increasing regular walking and cont. to limit salt intake. Monitor home BP's and call if BP consistently running above 140/90. Related to Hypertension, unspecified type Immunizations Dietary management e ducation, guidance, and counseling Related to Body mass index (BMI) 29.0-29.9, adult Continue current med icationCont. to work on increasing regular walking and cont. to limit salt intake. Monitor home BP's and call if BP consistently running above 140/90. Related to Hypertension, unspecified type We will check labs t odaySchedule your diabetic eye exam soon. Let them know that you have diabetes Related to Type 2 diabetes mellitus without complication, without long-term current use of insulin Continue yearly mamm ogramsYou will be due for colon cancer screening in March We recommend getting the updated COVID booster if you have not yet. You should wait at least 2 months after your last COVID vaccine to get this updated vaccine Related to Routine medical exam continue current med ication Continue to work on low fat diet and increase regular exercise with goal of walking at least 30 minutes 3-5 times per week Related to Other and unspecified hyperlipidemia Dietary management e ducation, guidance, and counseling Related to Body mass index (BMI) 28.0-28.9, adult Continue yearly mamm ogramsFlu vaccine given todayGet the newest COVID vaccine at the pharmacyFasting labs done todayTry to do some regular walkingfollow up in 6 months Related to Routine medical exam Check labs todaycont inue diabetic diet and regular exerciseSchedule your diabetic eye exam with your eye doctor Related to Type 2 diabetes mellitus without complication, without long-term current use of insulin check labs todayCont inue current medicationCont. to work on increasing regular walking and cont. to limit salt intake. Monitor home BP's and call if BP consistently running above 140/90. Related to Hypertension, unspecified type continue current med icationcheck labs todayfollow up in 6 months Related to Other and unspecified hyperlipidemia Dietary management e ducation, guidance, and counseling Related to Body mass index (BMI) 29.0-29.9, adult Immunizations continue current med icationfollow up in 6 months for physical and labs Related to Other and unspecified hyperlipidemia check labs todayCont inue current medicationCont. to work on increasing regular walking and cont. to limit salt intake. Monitor home BP's and call if BP consistently running above 140/90. Related to Hypertension, unspecified type Pap smear done today - we will notify you with results Related to Cervical cancer screening Check labs todaycont inue diabetic dietStatus: Able to self-manage condition. Goals: Your goal is to be active. Barriers: No barriers to goal achievement have been identified. Related to Type 2 diabetes mellitus without complication, without long-term current use of insulin Pap smear done today - we will notify you with results Related to Encounter for gynecological examination without abnormal finding Continue current med icationCont. to work on increasing regular walking and cont. to limit salt intake. Monitor home BP's and call if BP consistently running above 140/90. Related to Hypertension, unspecified type Check labs todaycontinue atorvas tatin Related to Other and unspecified hyperlipidemia Schedule your mammog juanita when you are due next yearPrevnar 20 (pneumococcal vaccine) given todayGet the new bivalent COVID vaccine as scheduled at workFasting labs done todayTry to do some regular walkingfollow up in 6 months - will do Pap at that visit Related to Routine medical exam Check labs todaycont inue diabetic dietStatus: Able to self-manage condition. Goals: Your goal is to be active. Barriers: No barriers to goal achievement have been identified. Related to Type 2 diabetes mellitus without complication, without long-term current use of insulin Dietary management e ducation, guidance, and counseling Related to Body mass index (BMI) 29.0-29.9, adult Immunizations Continue current med icationCont. to work on increasing regular walking and cont. to limit salt intake. Monitor home BP's and call if BP consistently running above 140/90. Related to Hypertension, unspecified type continue diabetic di etStatus: Able to self-manage condition. Goals: Your goal is to be active. Barriers: No barriers to goal achievement have been identified. Related to Type 2 diabetes mellitus without complication, without long-term current use of insulin Continue naproxen tw ice daily with food Can also take tylenol extra strength up to 2 tabs 3 times daily as needed for painRx sent for tramadol 50mg every 6 hours as needed for severe pain. May cause drowsinessRx. sent for lidocaine patches to apply once dailyApply an ice pack alternating with heating pad as neededGentle stretching recommendedfollow up if worseningFlu vaccine given today Related to Acute left-sided low back pain without sciatica Immunizations Dietary management e ducation, guidance, and counseling Related to Body mass index (BMI) 28.0-28.9, adult Check labs todaySche dule your diabetic eye exam with an optometristStatus: Able to self-manage condition. Goals: Your goal is to be active. Barriers: No barriers to goal achievement have been identified. Related to Type 2 diabetes mellitus without complication, without long-term current use of insulin continue atorvastatin Related to Other and unspecified hyperlipidemia continue current medications Rel ated to Hypertension, unspecified type Check thyroid labs Related to Co ld intolerance Dietary management e ducation, guidance, and counseling Related to Body mass index (BMI) 28.0-28.9, adult Flu vaccine given to day Recommend the new Shingrix vaccine- check with insurance to find out what your insurance coverage is for this and go to the pharmacy for administration if you wish to proceed with vaccination. Please try to do the Cologuard testing as soon as possible. If you change your mind about having a colonoscopy done, please call and let us know so we can send an order to GI for this.Fasting labs done today Related to Routine medical exam Cont. medication as prescribed.Cont. to work on low fat diet and increase regular exercise with goal of walking at least 30 min. 3 to 5 times per week.Check lipid panel today Related to Other and unspecified hyperlipidemia Check labs todayReco mmend getting an eye examStatus: Able to self-manage condition. Goals: Your goal is to work on healthy eating habits. Barriers: No barriers to goal achievement have been identified. Related to Type 2 diabetes mellitus without complication, without long-term current use of insulin Continue current med icationCont. to work on increasing regular walking and cont. to limit salt intake. Monitor home BP's and call if BP consistently running above 140/90. Related to Hypertension, unspecified type Immunizations Dietary management e ducation, guidance, and counseling Related to Body mass index (BMI) 30.0-30.9, adult Check labs todayTry to limit foods and beverage that are high in sugarTry to increase regular exercise such as walkingSchedule eye exam with your eye doctorStatus: Able to self-manage condition. Goals: Your goal is to work on healthy eating habits. Barriers: No barriers to goal achievement have been identified. Related to Type 2 diabetes mellitus without complication, without long-term current use of insulin Cont. medication as prescribed.Cont. to work on low fat diet and increase regular exercise with goal of walking at least 30 min. 3 to 5 times per week. Related to Other and unspecified hyperlipidemia continue current med icationsCheck labs today Related to Unspecified essential hypertension Dietary management e ducation, guidance, and counseling Related to Body mass index (BMI) 31.0-31.9, adult Diabetic diet continue current medications Rel ated to Unspecified essential hypertension Cont. medication as prescribed.Cont. to work on low fat diet and increase regular exercise with goal of walking at least 30 min. 3 to 5 times per week. Related to Other and unspecified hyperlipidemia We will call you dre john recommendations on medication Related to Seizure disorder Fasting labs done- w e will notify you with results Recommend the new Shingrix vaccine- check with insurance to find out what your insurance coverage is for this and go to the pharmacy for administration if you wish to proceed with vaccination. Related to Routine medical exam Get lumbar x-ray don e soon and we will call you with resultsPerform back exercises at home Related to Acute right-sided low back pain with right-sided sciatica Dietary management e ducation, guidance, and counseling Related to Body mass index (BMI) 31.0-31.9, adult CXR ordered per Dr. Tena's recommendationsWill send him the results of lab testing and chest xray when they are received Related to Pre-operative exam continue current medications Rel ated to Unspecified essential hypertension check labs today- we will call you with resultsStatus: Able to self-manage condition. Goals: Your goal is to work on healthy eating habits. Barriers: No barriers to goal achievement have been identified. Related to Elevated glucose Start taking your di lantin againwill check your dilantin level in 3 months Related to Seizure disorder Cont. medication as prescribed.Cont. to work on low fat diet and increase regular exercise with goal of walking at least 30 min. 3 to 5 times per week. Related to Other and unspecified hyperlipidemia Fasting labs done- w e will notify you with resultsSchedule your mammogram when you are due in April Recommend the new Shingrix vaccine- check with insurance to find out what your insurance coverage is for this and go to the pharmacy for administration if you wish to proceed with vaccination. Related to Routine medical exam Immunizations Dietary management e ducation, guidance, and counseling Related to Body mass index (BMI) 30.0-30.9, adult Assessments Type Assessment Date No Information Patient Care Teams Name Effective Dates (start - stop) Status Members No Information
--- OUTSIDE RECORDS SUMMARY | 2024-09-25 10:23 | XMS_ITS | Continuity of Care Document ---
Author Organization [facility] Address [address] [place] [address] [address] [place] [address] Phone Care Team Providers Care Pillowcase Turner Name Role Phone Flavio Guajardo Unavailable Unavailable Advance Directives Directive Yes / No Effective Date File Name No Information Encounters Encounter Description Practice Location Reason(s) For Visit Diagnoses Date Provider Providers Copied on Encounter [facility], [id number] [place] [address] [address], [place], [place], [id number], [place] tel:[phone] [facility] No Information Dec-1 5-200 0 Rajwindersy Edward. [address] [facility] , [address], [place], [address], [place]. tel:[phone] Family History Family Member Type Diagnosis Age At Onset No Information Payers Payer name Insurance type Covered libertarian ID Authoriza ticaitie(s) [employer] SOI CI [id number] Social History Type Description Quantity Date Captured Comments Sex Female Smoking Status No Information Chief Complaint And Reason For Visit No Information Reason For Referral Reason For Referral No Information History Of Present Illness Encounter Date Complaint History Of Prese nt Illness No Information Functional Status Date Functional Assessmen t No Information Instructions Date Instruction Additional Infor mation No Information Assessments Type Assessment Date No Information Patient Care Teams Name Effective Dates (start - stop) Status Members No Information
--- OUTSIDE RECORDS SUMMARY | 2024-09-25 10:23 | XMS_ITS | Clinical Summary ---
Author Organization [facility] Address [address] [place] [id number] Care Team Providers Care Stiff Straw Hat Washer Name Role Phone Unavailable Primary Care Provider Unavailabl e Immunizations Immunization Administration Dates Next Due Covid-19, Mrna, Lnp-s, Pf, 30 Mcg/0.3 Ml Dose (P fizer) 05/01/2021 Social History Tobacco Use Types Packs/Day Years Used Date Smoking Tobacco: Never Assessed Comments Unknown Sex and Gender Information Value Date Recorded Sex Assigned at Not on file Legal Sex Female 10:12 AM CDT Gender Identity Not on file Sexual Orientation Not on file Plan of Treatment Health Maintenance Due Date Last Done Comments Hepatitis C Virus (HCV) Screening 1959 Colonoscopy 2004 Colorectal Cancer Screening 2004 Cologuard 2009 Immunochemical Fecal Occult Blood 2009 Pneumococcal Immunization (50+ years) (1 of 1 - PCV) 2009 Zoster Immunization (1 of 2) 2009 Influenza Immunization (#1) 2024 10/0 09/2020, 03/13/2020, 04/10/2019, Additional history exists SARS-COV-2 Immunization ( season) 2024 05/01/2021, 08/23/2020, 08/02/2020 Respiratory Syncytial Virus (RSV) Immunization (Adult) (1 - 1-dose 75+ series) 2034 DTaP/Tdap/Td Immunization Discontinued 04/01/2015 TdaP Immunization Completed 04/01/2015 Hepatitis B Immunization Aged Out No longer eligible based on patient's age to complete this topic Meningococcal Immunization (ACWY) Aged Out No longer eligible based on patient's age to complete this topic Rotavirus Immunization Aged Out No lo nger eligible based on patient's age to complete this topic
--- OUTSIDE RECORDS SUMMARY | 2024-09-25 10:23 | XMS_ITS | Data Portability ---
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 We saw her in 2019 for bilateral hip bursitis. She had cortisone injections and her pain went away. She did not go to any therapy at that time. At this point her hips have become painful again. Right is worse than left. She has been having symptoms for 3 or 4 weeks. She cannot lie on either side to sleep at night. She has pain through the day. 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 She has been taking naproxen 500 mg b.i.d.. She complains of pain and points directly at the lateral hips where she feels it. When pain started she does not recall any activity that may aggravated it. HPI: 62-year-old female, she is 5 ft tall and 153 lb. She has flexion both hips 120 externally rotates to 40 in both hips internally rotates to 20 in both hips. With internal rotation right she feels pain laterally. In the left minimal discomfort with internal rotation laterally. Negative Stinchfield maneuver bilaterally. Moderate to severe tenderness to palpation of both trochanteric bursae. She has normal abduction strength in lateral position in both hips. No swelling in either lower extremity. She walks well without limp or Trendelenburg sag. After ChloraPrep was used on skin 20 mg Kenalog and 3 cc of 0.5% ropivacaine was injected into both areas maximal tenderness lateral hips at the trochanteric bursae. Risk of infection discussed. Impression: Patient has had recurrence of her trochanteric bursitis of both of her hips. She had cortisone injections in 2019 and wished to have these today. She is miserable with the soreness and I think this would be reasonable. I did recommend she go to physical therapy to be taught exercise program for stretching and strengthening to hopefully prevent this from recurring in future. She is willing to go to 1 visit to be taught a home exercise program and we will set this up for her. If her symptoms do not improve to her satisfaction she can call otherwise we will see her back as needed. 20 minutes was spent in treatment patient more than half of this in [id number] conversation med Not available 01/21/2023 10:22:22 Plan of Treatment Reminders Order Date Submit Date Provider Last Modified By Organization Details Last Modified Time Details Appointments None recorded. Lab None recorded. Referral None recorded. Procedures injection/a spiration joint/bursa (PROC) - in office procedure, administere d by provider 2022 023 [email or web address] In-Office Order, Internal Use Only DO Not Attach Compendium DO Not Attach Compendium, Do Not Delete/merge, [id number] 09:52:24 Surgeries None recorded. Imaging XR, hip + pelvis, bilateral 2022 023 [email or web address] [facility], [address], [place], [address], 16:44:49 Medication Orders Kenalog 10 mg/mL suspension for injection 2022 023 [id number], [address] , [place], [place], [id number], 16:44:49 ropivacaine (PF) 5 mg/mL (0.5 %) injection solution 2022 023 [id number], [address], [place], [place], [id number], 3 16:44:49 Patient TargetsNo targets recorded. Patient InstructionsNo instructions recorded. Reason for Referral None Reported. Results Created Date Observation Date Name Description Value Unit Range Abnormal Flag Note LastModifiedBy Organization Detail LastModifiedTime 01/22/20 23 XR, hip + pelvi s, bilat eral No observ ation record ed. [email or web address] [facility] [address], [place], [address], 01/21/2023 10:18:59 Result Notes None recorded. Problems Name Problem SNOMED Code Status Onset Date Resolution Date Notes Provider Name and Address Organization Details Recorded Time Edema of foot 487046158 Active 2018 Not Available [facility] 3 17:48:46 Sprain of right ankle 9116319624646 9105 Active 2018 Not Available [facility] 3 17:48:46 Neuralgia 95612446 Active 2019 Not Available [facility] 3 17:48:46 Postoperat ragini visit 038457190 Active 2018 Not Available [facility] 3 17:48:46 Radiothera py follow-up 266791458 Active Not Available [facility] 3 17:48:46 Localized, primary osteoarthr itis 078207244 Active Not Available [facility] 3 17:48:46 Full thickness rotator cuff tear 020682949 Active Not Available [facility] 3 17:48:46 Shoulder joint pain 106281108 Active Not Available [facility] 3 17:48:46 Enthesopat hy of hip region 27223579 Active Not Available [facility] 3 17:48:46 Closed fracture of lateral malleolus 61453476 Active 2018 Not Available [facility] 3 17:48:47 Hypertensi ve disorder 66968655 Active Not Available [facility] 3 17:48:47 Bilateral hip joint pain 5108961109979 9100 Active 2022 MADDY Gonzalez null, [place] - [facility] [employer] [facility] 3 09:25:41 Problem Notes None recorded. Procedures Surgical History Date Name Laterality Status Provider Name and Address Organization Details Recorded Time procedure on shoulder completed MADDY Gonzalez [place] - [facility] 01/21/2023 09:24:30 Imaging Results Imaging Date Name Status LastModified by Organiz ation Details LastModified Time 01/21/2023 XR, hip + pelvis, bilateral completed [email or web address] [facility] [address], [place], [address], 01/21/2023 10:18:59 Procedure Notes None recorded. Medical Equipment None Reported. Allergies Allergen ID Allergen Name Allergen Category Reaction Reaction Severity Criticality Documentation Date Start Date Code Code System Note Provider Name and Address Organization Details Recorded Time 08788 Product containin g penicilli n (product) medicatio n Not available Not available Not available 08/26/2022 87821 8001 SNOMED Not Available [facility] 3 17:51:32 Medications Name Sig Start Date Stop Date Status Note LastModified by Organization Details LastModified Time methocarbam ol 500 mg tablet TAKE 1 TABLET BY MOUTH THREE TIMES DAILY FOR 5 DAYS active Not Available Not Available No t Available atorvastati n 80 mg tablet TAKE 1 TABLET BY MOUTH EVERY DAY active Not Available Not Available No t Available ofloxacin 0.3 % eye drops INT 1 TO 2 GTS AEY Q 2 TO 4 H 10/10 completed Not Available Not Available Not Available hydrocodone 5 mg-acetamin ophen 325 mg tablet TK 1 T PO Q 8 H PRN P active Not Available Not Available No t Available lisinopril 20 mg tablet TAKE 1 TABLET BY MOUTH EVERY DAY active Not Available Not Available No t Available ondansetron HCl 4 mg tablet 10/10 completed Not Available Not Available Not Available phenytoin sodium extended 100 mg capsule TK 4 CS PO QHS 10/10 completed Not Available Not Available Not Available sulfamethox azole 800 mg-trimetho prim 160 mg tablet TK 1 T PO BID AFTER MEALS active Not Available Not Available No t Available tramadol 50 mg tablet TAKE 1 TABLET BY MOUTH EVERY 6 HOURS NEEDED FOR SEVERE PAIN active Not Available Not Available No t Available acyclovir 800 mg tablet 10/10 completed Not Available Not Available Not Available meloxicam 7.5 mg tablet 10/10 completed Not Available Not Available Not Available oxycodone-a cetaminophe n 5 mg-325 mg tablet TK 1 T PO Q 6 HOURS PRF MODERATE PAIN active Not Available Not Available No t Available Kenalog 10 mg/mL suspension for injection in office 2022 active [facility]: 0003- 0494- 20 Not Available Not Available Not Available hydrocodone 7.5 mg-acetamin ophen 325 mg tablet TK 1 T PO Q 4 H PRN P 10/10 completed Not Available Not Available Not Available cephalexin 500 mg capsule 10/10 completed Not Available Not Available Not Available lidocaine 5 % topical patch active Not Available Not Available Not Available gabapentin 300 mg capsule TAKE 1 CAPSULE BY MOUTH EVERY DAY AT BEDTIME active Not Available Not Available No t Available hydrochloro thiazide 25 mg tablet TAKE 1/2 TABLET BY MOUTH EVERY DAY active Not Available Not Available No t Available mupirocin 2 % topical ointment YOHANA SML AMT EXT TO WOUND D active Not Available Not Available No t Available fluticasone propionate 50 mcg/actuati on nasal spray,suspe nsion USE 1 SPRAY IN EACH NOSTIL 2 TIMES Q DAY 10/10 completed Not Available Not Available Not Available loratadine 10 mg tablet TAKE 1 TABLET BY MOUTH DAILY 10/10 completed Not Available Not Available Not Available naproxen 500 mg tablet TAKE 1 TABLET BY MOUTH TWICE DAILY WITH FOOD active Not Available Not Available No t Available cyclobenzap rine 5 mg tablet TK 1 T PO BID 10/10 completed Not Available Not Available Not Available ropivacaine (PF) 5 mg/mL (0.5 %) injection solution in office 2022 active [facility] 01796 -[phone]- [phone] Not Available Not Available Not Available Fluarix Quad (PF) 60 mcg (15 mcg x 4)/0.5 mL IM syringe ADM 0.5ML IM UTD active Not Available Not Available No t Available Vitals Date Recorded Body height Body mass index (BMI) Body weight Provider Name and Address Organization Details Last Updated DateTime 01/21/2023 152.4 cm 29.9 kg/m2 49170.63 MADDY Link - [facility] 01/21/2023 09:28:08 Social History Question Answer Notes LastModified by Organizat ion Details LastModified Time Tobacco Smoking Status Never Smoker MADDY Gonzalez, [facility] 01/21/2023 09:24:11 What Is Your Level Of Alcohol Consumption? None [email or web address] Information not available 01/21/2023 Sex: Unknown Functional Status None recorded. Mental Status None recorded. Family History Relationship Description Onset Age of this Age Resolved Age Notes LastModified by Organization Details LastModified Time Sister Hypertensive disorder [email or web address] Not available 2022 09:23:54 Paternal Aunt Diabetes mellitus Not available 2022 09:24:04 Medical History No medical history recorded. Gynecological HistoryNo gynecological history recorded. Obstetrics History GPAL:G 0 P 0 0 0 0 Past Encounters Encounter ID Performer Location Encounter Start Date Encounter Closed Date Diagnosis/Indication Diagnosis SNOMED-CT Code Diagnosis ICD10 Code Diagnosis Note [id number] SOULEYMANE Rene [facility] [address] [place] [place] [address] 01/21/2023 08:50:35 01/21/2023 10:44:27 Bilateral hip joint pain 7584122048 6434263 M25.551 Health Concerns Section Related Observation LastModified by Organization Detai ls LastModified Time None Recorded Concern Status LastModified by Organization Details LastModified Time None Recorded Advance Directives Directive None Recorded Payers Encounter Date Sequence Insurance Name Policy Number Policy Venegas Covered Member ID Venegas Member ID Guarantor Name 01/21/2023 1 [place] [id number] Chelsea Okeefe [id number] Chelsea Okeefe OBGyn Episode No OBEpisode recorded.
== END 2024-09-25 09:31 | disposition home or self-care (01) ==
LOC: ANHIMG 09:33
PROVIDERS: PCP Internal Medicine; Visit Provider Internal Medicine
DX: Z12.31 Encounter for screening mammogram for malignant neoplasm of breast (principal)
CPT/HCPCS: 77063; 77067